=== PATIENT | female | born 1970 | race Caucasian/White ===

== ENCOUNTER → 2023-10-02 07:37 | Outpatient (REF) | payer BC, SELFPAY | LOC: MRI 3T 07:37 | PROVIDERS: ATTENDING PHYSICIAN Surgery; FAMILY PHYSICIAN Family Medicine | DX: Z15.01 Genetic susceptibility to malignant neoplasm of breast (principal); Z15.09 Genetic susceptibility to other malignant neoplasm; Z15.89 Genetic susceptibility to other disease | CPT/HCPCS: 77049; A9585 ==

== ENCOUNTER 2024-07-04 07:41 | Emergency (ER) | payer BC, SELFPAY ==
[2024-07-04 07:46] VITALS: BP 108/70
--- NOTE | 2024-07-04 08:16 | ED.GENMED ---
History of Present Illness
General
Chief Complaint: Skin Problem
Source: patient and spouse
Exam Limitations: none
Time Seen by Provider: 07/04/24 07:53
Nursing documentation reviewed up to this point in time: agreed with
History of Present Illness
History of Present Illness:
54-year-old female with diffuse itchy rash for a few weeks due to taking some supplements she believes improved with a Medrol Dosepak prescribed by an ENT for tinnitus, but came back when she stopped the steroid, worse on her arms back gets worse
when she scratches, no tongue swelling no lip swelling no abdominal pain, has suffered with hives for most of her life, has never seen an order planner
Past History
Past History
ED Past Medical History: Other (Recurrent hives)
Social History
Tobacco: Non-smoker
Alcohol: None
Drug: None
Personal:
Living: with family
Employment: Employed
Review of Systems
Review of Systems
All Other Systems: Not applicable
Constitutional: Denies fever
EENT: Reports no symptoms
Respiratory: Reports no symptoms
Cardiac: Reports no symptoms
Skin: Reports itching and rash
Phy Exam
Physical Exam
Physical Exam:
Physical Exam
General: no apparent distress, not acutely ill
Neck: No lip swelling normal size,
Heart: s1/s2 regular rate and rhythm, no murmur. equal radial pulses.
Lungs: no acute respiratory distress. clear bilaterally
Neuro: alert and oriented. no focal neurological deficits
Skin: Faint diffuse red rash
Psychiatric: well kept. interactive and cooperative
Extremities: no edema.
Course
Orders/Labs/Results
Orders:
Orders
07/04/24 08:12
Prednisone [Deltasone] 40 mg PO NOW STA
Vital Signs
Initial and Last Documented VS:
Initial Vital Signs
Temp Pulse Resp BP Pulse Ox
98.6 F 74 16 108/70 100
07/04/24 07:46 07/04/24 07:46 07/04/24 07:46 07/04/24 07:46 07/04/24 07:46
Last Documented Vital Signs
Temp Pulse Resp BP Pulse Ox
98.6 F 74 16 108/70 100
07/04/24 07:46 07/04/24 07:46 07/04/24 07:46 07/04/24 07:46 07/04/24 07:46
MDM/Problems Addressed
Differential Diagnosis Includes:
Allergic dermatitis nonspecific
MDM/Problems Addressed:
Rash
*Pulse Oximetry
Patient hypoxic: no
*Critical Care Note
Total Time (30-74mins, 75-104mins- exclusive of procedures): Not Applicable
Update Note
Update Note:
Update reviewed with patient, will do a slow taper of steroid, also some topical steroids given number for allergy
ED Attending Note
-
Portions of this chart may have been created with voice recognition software.� Occasional wrong word or��sound alike� substitutions may have occurred due to the inherent limitations of voice recognition software.
Discharge Plan
Departure
Patient Disposition: Home (Routine Discharge)
Date of Disposition: 07/04/24
Time of Disposition: 08:12
Patient with high blood pressure during this ER visit?: No
Condition: Good
Discharge Problem:
Allergic reaction
Prescriptions:
New
hydrocortisone 2.5 % cream
1 applic topical BID PRN (Reason: allergic reaction) Qty: 28.35 0RF
prednisone 10 mg tablet
10 mg PO DAILY Qty: 30 0RF
Rx Instructions:
4 pills a day for 2 days 3 pills a day for 3 days 2 pills a day for 3 days 1 pill a day for 3 days
Claritin 10 mg tablet,chewable
10 mg PO DAILY Qty: 30 0RF
Referrals:
Mary Dahl MD [Consulting Staff] - Next open appointment
Steffi Ayala MD [Family Provider] - Next open appointment
Interventions
Interventions:
*Risk Screen - Suicide Last Done: 07/04/24 07:46
*General Assessment Last Done: 07/04/24 07:46
*Neglect/Abuse Screening Last Done: 07/04/24 07:46
*ED- Fall Risk Assessment Last Done: 07/04/24 07:46
*ED COVID-19 Vaccine History Last Done: 07/04/24 07:46
Discharge Date and Time
Print Language: TELUGU
[2024-07-04] MEDS: DELTASONE 40 MG PO (08:30)
[2024-07-04 08:54] VITALS: BP 112/74
== END 2024-07-04 08:56 | disposition home or self-care (01) ==
LOC: EMR 07:41
PROVIDERS: EMERGENCY PHYSICIAN Emergency Medicine; FAMILY PHYSICIAN Family Medicine
DX: T78.40XA Allergy, unspecified, initial encounter (principal); X58.XXXA Exposure to other specified factors, initial encounter
CPT/HCPCS: 99283

== ENCOUNTER 2024-07-26 17:01 | Emergency (ER) | payer BC, SELFPAY ==
--- NOTE | 2024-07-26 19:09 | ED.GENMED ---
History of Present Illness
General
Chief Complaint: Skin Problem
Source: patient
Exam Limitations: none
Time Seen by Provider: 07/26/24 18:12
Nursing documentation reviewed up to this point in time: agreed with
History of Present Illness
History of Present Illness:
Patient presents to ED secondary to persistent itchy rash over the past 2 months. Patient has been evaluated multiple times and has taken multiple doses of steroids, with mild improvement. In addition, patient has tried [id number] Benadryl,
Claritin, Zyrtec, topical steroids, with minimal relief. Patient has an appointment with an vehicle care specialist in November. However, patient does not feel that she can wait until then. Denies fever or chills. Denies new medications or diet.
Patient states that her symptoms are possibly secondary to perimenopausal symptoms.
Past History
Past History
ED Past Medical History: Other (Recurrent hives)
Social History
Tobacco: Non-smoker
Alcohol: None
Drug: None
Personal:
Living: with family
Employment: Employed
Review of Systems
Review of Systems
Allergies reviewed?: Yes
All Other Systems: ROS reviewed and negative except as documented in HPI and ROS
Constitutional: Reports no symptoms; Denies fever
ABD/GI: Reports no symptoms
Musculoskeletal: Reports no symptoms
Skin: Reports itching and rash
Neurological: Reports no symptoms
Phy Exam
Physical Exam
Physical Exam:
Physical Exam
General: no apparent distress, not acutely ill. afebrile
Head: nc/at.
Neck: supple. normal range of motion.
Neuro: alert and oriented x 3. no focal neurological deficits
Skin: diffuse macular erythematous rash noted over anterior chest wall / UE. Reports LE rash, but wearing pants
Psychiatric: well kept. interactive and cooperative
Extremities: no edema. no calf tenderness
Course
Orders/Labs/Results
Orders:
Orders
05/26/25 19:09
Dexamethasone Pf [Decadron] 10 mg PO NOW STA
Vital Signs
Initial and Last Documented VS:
Initial Vital Signs
Pulse Resp BP Pulse Ox
67 18 115/74 100
07/26/24 19:22 07/26/24 19:22 07/26/24 19:22 07/26/24 19:22
Last Documented Vital Signs
Pulse Resp BP Pulse Ox
67 18 115/74 100
07/26/24 19:22 07/26/24 19:22 07/26/24 19:22 07/26/24 19:22
MDM/Problems Addressed
MDM/Problems Addressed:
Patient with persistent pruritic rash, nonspecific, without any evidence of infection nor any systemic symptoms. No indication for any imaging or blood work at this time. Patient agreeable with symptomatic treatment with for course of steroids and
topical steroid cream. Patient will follow-up with her PCP or tipple operator for reevaluation.
*Critical Care Note
Total Time (30-74mins, 75-104mins- exclusive of procedures): Not Applicable
ED Attending Note
-
Portions of this chart may have been created with voice recognition software.� Occasional wrong word or��sound alike� substitutions may have occurred due to the inherent limitations of voice recognition software.
Discharge Plan
Departure
Patient Disposition: Home (Routine Discharge)
Date of Disposition: 07/26/24
Time of Disposition: 19:09
Patient with high blood pressure during this ER visit?: No
Discharge Problem:
Rash
Instructions: Skin Rash (DC)
Prescriptions:
New
hydrocortisone 2.5 % cream
1 applic topical TID PRN (Reason: rash) Qty: 28 0RF
dexamethasone 2 mg tablet
10 mg PO DAILY 1 Days Qty: 5 0RF
No Action
hydrocortisone 2.5 % cream
1 applic topical BID PRN (Reason: allergic reaction) Qty: 28.35 0RF
prednisone 10 mg tablet
10 mg PO DAILY Qty: 30 0RF
Rx Instructions:
4 pills a day for 2 days 3 pills a day for 3 days 2 pills a day for 3 days 1 pill a day for 3 days
Claritin 10 mg tablet,chewable
10 mg PO DAILY Qty: 30 0RF
Referrals:
Steffi Ayala MD [Family Provider] -
Activity Restrictions/Additional Instructions:
As discussed, please follow-up with your primary care physician and/or tipple operator for reevaluation. Your prescriptions have been sent electronically [facility] in [place].
Interventions
Interventions:
*Risk Screen - Suicide Last Done: 07/26/24 17:17
*General Assessment Last Done: 07/26/24 17:17
*Neglect/Abuse Screening Last Done: 07/26/24 17:17
*ED COVID-19 Vaccine History Last Done: 07/26/24 18:12
*Nursing Disposition Last Done: 07/26/24 19:30
ED-Skin Assessment Last Done: 07/26/24 18:12
Discharge Date and Time
Discharge Date/Time: 07/26/24 19:30
Print Language: UPPER SORBIAN
[2024-07-26 19:22] VITALS: BP 115/74
[2024-07-26] MEDS: DECADRON 10 MG PO (19:22)
== END 2024-07-26 19:30 | disposition home or self-care (01) ==
LOC: EMR 17:01
PROVIDERS: EMERGENCY PHYSICIAN Emergency Medicine; FAMILY PHYSICIAN Family Medicine
DX: R21 Rash and other nonspecific skin eruption (principal); L29.9 Pruritus, unspecified; Z88.8 Allergy status to other drugs, medicaments and biological substances
CPT/HCPCS: 99283

== ENCOUNTER → 2024-10-07 17:13 | Outpatient (REF) | payer BC, SELFPAY | LOC: RAD 17:13 | PROVIDERS: ATTENDING PHYSICIAN Obstetrics & Gynecology; FAMILY PHYSICIAN Family Medicine | DX: Z15.01 Genetic susceptibility to malignant neoplasm of breast (principal); Z15.09 Genetic susceptibility to other malignant neoplasm; N92.1 Excessive and frequent menstruation with irregular cycle | CPT/HCPCS: 76830; 76856 ==